=== PATIENT | male | born 1945 | race Caucasian/White ===

== ENCOUNTER 2016-04-02 08:21 | Outpatient (CLI) | payer MEDICARE, OTHER | END 2016-04-02 08:22 | disposition home or self-care (01) | DX: Z53.9 Procedure and treatment not carried out, unspecified reason (principal) ==

== ENCOUNTER 2020-05-13 13:06 | Outpatient (CLI) | payer MEDICARE, OTHER | END 2020-05-13 13:07 | disposition EMS.NT | LOC: EMS 13:06 | DX: Z04.1 Encounter for examination and observation following transport accident (principal) ==

== ENCOUNTER 2021-02-16 10:15 | Outpatient (CLI) | payer MEDICARE, OTHER ==
--- NOTE | 2021-02-16 14:56 | XRAY Report ---
PROCEDURE: Cervical Spine 2 View INDICATIONS: M54.2 TECHNIQUE: 3 view(s) of the cervical spine were acquired. COMPARISON: None. FINDINGS: Bones: No fractures or dislocations to the C7-T1 level. The lateral masses of C1 appear intact on t he odontoid view. No suspicious bony lesions. Significant bridging anterior osteophytes are present at C3-4, C4-5, C5-6 and to a lesser degree C6-7. Multilevel mild to moderate degenerative disc space narrowing most notable at C5-6 and C6-7. Multilevel uncovertebral arthropathy is present. Soft tissues: No prevertebral soft tissue swelling. IMPRESSION: Multiple degenerative changes as above. Reviewed by: Zaira Aguiar MD on 02/16/2021 2:54 PM PST Approved by: Zaira Aguiar MD on 02/16/2021 2:54 PM PST Station ID: [id number]
== END 2021-02-16 10:16 | disposition home or self-care (01) ==
LOC: DI.S 10:15
PROVIDERS: ATTEND Internal Medicine
DX: M47.812 Spondylosis without myelopathy or radiculopathy, cervical region (principal); M50.322 Other cervical disc degeneration at C5-C6 level; M48.02 Spinal stenosis, cervical region

== ENCOUNTER 2021-03-17 08:00 | Outpatient (CLI) | payer MEDICARE, OTHER ==
--- NOTE | 2021-03-17 12:27 | XRAY Report ---
PROCEDURE: Shoulder 3 View RT INDICATIONS: RIGHT SHOULDER PAIN TECHNIQUE: 3 views of the shoulder were acquired. COMPARISON: April 06, 2014. FINDINGS: BONES: No acute, displaced fracture. The joint spaces are maintained. Mild AC joint arthrosis. 6 mm calcific density adjacent to the greater tuberosity, which may reflect calcific tendinopathy. SOFT TISSUES: No focal abnormality or appreciable pneumothorax. IMPRESSION: 1.No acute osseous abnormality. Reviewed by: Eloy Robbins MD on 03/17/2021 12:26 PM PST Approved by: Eloy Robbins MD on 03/17/2021 12:26 PM [facility] Station ID: [id number]
== END 2021-03-17 23:59 | disposition home or self-care (01) ==
LOC: DI.S 08:00
PROVIDERS: ATTEND Physician Assistant Medical
DX: M25.511 Pain in right shoulder (principal)

== ENCOUNTER 2022-08-24 13:17 | Outpatient (CLI) | payer OTHER ==
--- NOTE | 2022-08-24 23:37 | DEXA Report ---
PROCEDURE: Dexa Spine and/or Hip INDICATIONS: OSTEOPOROSIS SCREENING TECHNIQUE: Dual energy x-ray absorptiometry (DXA) was performed on a [employer] System. Regions measur ed are the AP Spine, femoral neck, and if needed forearm. COMPARISON: None FINDINGS: Lumbar Spine: Bone Mineral Density 1.261 g/cm/cm,T score 0.3. Normal Left Femoral Neck: Bone Mineral Density 0.768 g/cm/cm, T score -2.3. Osteopenia Left Hip: Bone Mineral Density 0.904 g/cm/cm,T score -1.4. Osteopenia (T score greater or equal to -1.0: NORMAL) (T score from -1.1 to -2.4: OSTEOPENIA) (T score less than or equal to -2.5 to: OSTEOPOROSIS) Impression: By WHO criteria, this patient has low bone density (osteopenia). Patients with diagnosis of osteoporosis or osteopenia should have regular bone mineral density assess ment. For those eligible for Medicare, routine testing is allowed once every 2 years. Testing frequ ency can be increased for patients who have rapidly progressing disease or for those who are receivin g medical therapy to restore bone mass. Reviewed by: Chasity Reilly MD on 08/24/2022 10:36 PM [facility] Approved by: Chasity Reilly MD on 08/24/2022 10:36 PM [facility] Station ID: [id number]
== END 2022-08-24 13:18 | disposition home or self-care (01) ==
LOC: DI 13:17
PROVIDERS: ATTEND Internal Medicine
DX: Z13.820 Encounter for screening for osteoporosis (principal); M85.89 Other specified disorders of bone density and structure, multiple sites